=== PATIENT | female | born 1940 | race Caucasian/White ===

== ENCOUNTER 2017-10-08 18:20 | Inpatient (IN) | payer OTHER, BC ==
[~2017-10-08] VITALS: Ht 167.6 cm; Wt 72.6 kg
[2017-10-08 18:30] VITALS: BP 125/80
[2017-10-08] MEDS ORDERED: LYRICA 50 MG50 MG PO (19:11)
[2017-10-08] MEDS ORDERED: CRESTOR20 MG PO (19:11)
[2017-10-08] MEDS ORDERED: VITAMIN B-12500 MCG PO (19:11)
[2017-10-08] MEDS ORDERED: VITAMIN D2000 UNIT PO (19:12)
[2017-10-08] MEDS ORDERED: CALCIUM 600 +1 EAC1 PO (19:12)
[2017-10-08] MEDS ORDERED: BACTRIM DS TAB1 EACH PO (19:12)
[2017-10-08] MEDS ORDERED: SYMBICORT80 MCG/4.1 INH (19:13)
[2017-10-08] MEDS ORDERED: COMBIVENT RESPIM4 GM INH (19:13)
[2017-10-08] MEDS ORDERED: GLUMETZA1000 M1 PO (19:14)
[2017-10-08 19:26] LABS: ABSOLUTE NEUTROPHILS 10.2 thou/uL (1.4-8.2); BASOPHILS 0.8 % (0.0-2.0); EOSINOPHILS 0.2 % (0.0-3.0); HEMATOCRIT 40.7 % (37.0-47.0); HEMOGLOBIN 13.6 gm/dL (12.0-15.0); LYMPHOCYTES 4.1 % (24.0-44.0); MCH 32.3 pg (26.0-34.0); MCHC 33.5 g/dL (28.0-37.0); MCV 96.1 fL (80.0-100.0); MONOCYTES 2.1 % (1.0-8.0); PLATELET COUNT 224 thou/uL (150-400); POLYS 92.8 % (36.0-66.0); RBC 4.23 mil/uL (4.20-5.00)
[2017-10-08 19:31] LABS: CREATININE 0.8 mg/dL (0.6-1.0); POTASSIUM 3.8 mmol/L (3.5-5.1)
[2017-10-08 19:37] LABS: ALBUMIN 3.5 g/dL (3.4-5.0); TOTAL BILIRUBIN 0.6 mg/dL (<0.1-1.0); TOTAL PROTEIN 6.2 g/dL (6.4-8.2)
[2017-10-08 21:11] LABS: URINE BILIRUBIN NEGATIVE (Negative); URINE BLOOD NEGATIVE (Negative); URINE CLARITY CLEAR; URINE COLOR YELLOW; URINE GLUCOSE-RANDOM* NEGATIVE (Negative); URINE KETONES TRACE (Negative); URINE LEUKOCYTES NEGATIVE (Negative); URINE NITRITE NEGATIVE (Negative); URINE PROTEIN (DIPSTICK) NEGATIVE (Negative); URINE UROBILINOGEN 0.2 E.U./dl (0.2-1.0)
[2017-10-08 21:47] VITALS: BP 119/58
[2017-10-09 14:21] VITALS: BP 105/52
[2017-10-09 22:03] VITALS: BP 125/66
[2017-10-10 04:33] VITALS: BP 113/57
[2017-10-10 09:22] VITALS: BP 113/58
[2017-10-10 16:32] VITALS: BP 121/60
[2017-10-10 16:55] VITALS: BP 121/60
[2017-10-10 19:32] VITALS: BP 136/79
[2017-10-11 03:15] VITALS: BP 130/71
[2017-10-11 08:00] VITALS: BP 152/85
[2017-10-11 11:27] VITALS: BP 121/60
[2017-10-11 12:26] VITALS: BP 121/60
== END 2017-10-11 12:15 | disposition home health service (06) | DRG 872 ==
LOC: ER 18:20 → 4S 20:04 → EROBS 20:04 → 4S 10-09 14:50
PROVIDERS: Physician Assistant
PROC: 05HC33Z Insertion of Infusion Device into Left Basilic Vein, Percutaneous Approach (ICD-10-PCS; principal; 2017-10-10)
DX: A41.9 Sepsis, unspecified organism (principal); L03.113 Cellulitis of right upper limb; I89.0 Lymphedema, not elsewhere classified; Z88.1 Allergy status to other antibiotic agents; Z88.8 Allergy status to other drugs, medicaments and biological substances; Z85.3 Personal history of malignant neoplasm of breast; Z90.10 Acquired absence of unspecified breast and nipple
CPT/HCPCS: 10100; 27001

== ENCOUNTER 2019-09-16 17:01 | Inpatient (IN) | payer OTHER, BC ==
[~2019-09-16] VITALS: Ht 152.4 cm; Wt 66.2 kg
[~2019-09-16 17:01] MED LIST: BACTRIM DS TAB1 EACH PO; CALCIUM 600 +1 EAC1 PO; COMBIVENT RESPIM4 GM INH; CRESTOR20 MG PO; GLUMETZA1000 M1 PO; LYRICA 50 MG50 MG PO; SYMBICORT80 MCG/4.1 INH; VITAMIN B-12500 MCG PO; VITAMIN D2000 UNIT PO
[2019-09-16 17:11] VITALS: BP 97/58
[2019-09-16] MEDS ORDERED: CRESTOR20 MG PO (18:39)
[2019-09-16] MEDS ORDERED: LEVO-T50 MCG PO (18:40)
[2019-09-16] MEDS ORDERED: NEURONTIN 300M300 M2 PO (18:40)
[2019-09-16 18:51] LABS: ABSOLUTE NEUTROPHILS 12.6 thou/uL (1.4-8.2); BASOPHILS 0.1 % (0.0-2.0); EOSINOPHILS 0.1 % (0.0-3.0); HEMATOCRIT 44.9 % (37.0-47.0); HEMOGLOBIN 14.9 gm/dL (12.0-15.0); MCH 32.5 pg (26.0-34.0); MCHC 33.1 g/dL (28.0-37.0); MCV 98.2 fL (80.0-100.0); MONOCYTES 2.2 % (1.0-8.0); PLATELET COUNT 173 thou/uL (150-400); POLYS 94.6 % (36.0-66.0); RBC 4.57 mil/uL (4.20-5.00); RDW 13.8 % (10.5-14.5); WBC 13.3 thou/uL (4.0-11.0)
[2019-09-16 19:08] LABS: ALBUMIN 3.7 g/dL (3.4-5.0); CREATININE 0.9 mg/dL (0.6-1.0); DIRECT BILIRUBIN 0.2 mg/dL (<0.1-0.2); POTASSIUM 3.7 mmol/L (3.5-5.1); TOTAL BILIRUBIN 0.8 mg/dL (<0.1-1.0); TOTAL PROTEIN 6.6 g/dL (6.4-8.2)
[2019-09-16 19:17] LABS: CALCIUM 9.4 mg/dL (8.5-10.1)
[2019-09-16 20:35] VITALS: BP 97/58
[2019-09-16 21:50] VITALS: BP 127/72
[2019-09-16 21:52] VITALS: BP 126/67
[2019-09-17 00:07] VITALS: BP 109/55
[2019-09-17 06:10] LABS: HEMATOCRIT 43.5 % (37.0-47.0); HEMOGLOBIN 14.1 gm/dL (12.0-15.0); MCH 32.3 pg (26.0-34.0); MCHC 32.4 g/dL (28.0-37.0); MCV 99.6 fL (80.0-100.0); RBC 4.36 mil/uL (4.20-5.00); RDW 13.9 % (10.5-14.5); WBC 17.1 thou/uL (4.0-11.0)
[2019-09-17 06:14] LABS: CALCIUM 8.7 mg/dL (8.5-10.1); CREATININE 0.7 mg/dL (0.6-1.0); POTASSIUM 3.7 mmol/L (3.5-5.1)
[2019-09-17 08:19] VITALS: BP 117/59
--- NOTE | 2019-09-17 10:54 | NUR ---
Received awake on bed. Due medications given as prescribed. A+Ox4. On room air. Vital signs stable. Able to go to the bathroom, up ad cheri. On regular diet, tolerating well; no nausea, no vomiting and no abdominal pain. With swelling and redness noted at R arm- advised pt to keep elevated; intact, not weeping. With NS at 80cc/hr, infusing well at L AC. With limb alert at R arm. Assisted in ADLs.
[2019-09-17 13:41] VITALS: BP 112/49
--- NOTE | 2019-09-17 14:23 | NUR ---
PT ADMITTED RELATED TO RIGHT UPPER ARM CELLULITIS. CM REVIEWED CHART AND SPOKE WITH CARE TEAM. CM MET WITH PT AT BEDSIDE THIS DAY. PT IS A&O X4. CM ROLE INTRODUCED. PT INDICATED SHE LIVES IN RAISED RANCH STYLE HOUSE WITH HER SPOUSE, DOG, AND CAT WITH A FULL FLIGHT OF STEPS IN THROUGH THE GARAGE. 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 PT INDICATED NO DME. PT INDICATED SHE HAD HH AND HOME INFUSION 2 YRS AGO BUT CAN'T RECALL PROVIDERS. PT INDICATED SHE PLANS TO RETURN HOME ONCE MEDICALLY STABLE. CM TO FOLLOW INDICATED WITH DC PLANNING.
--- NOTE | 2019-09-17 16:01 | NUR ---
IT APPEARES THAT ID ANTICIPATES THAT PT WILL BE ABLE TO DISCAHRGE ON ORAL ABX ONCE MEDICALLY STABLE. SHOULD ANY DISCHARGE NEEDS ARISE CM ABLE TO ASSIST.
[2019-09-17 20:47] VITALS: BP 116/88
--- NOTE | 2019-09-18 01:22 | NUR ---
ASSUMED CARE OF PT AT 1900HRS. PT IS AOX4 AND LETS NEEDS BE KNOWN. PT IS UP AD SHERRIE. ABX TREATMENT CONTINUED. RUE ELEVATION ENCOURAGED. PT DENIED PAIN OR NAUSEA. ABX TREATMENT CONTINUED. PT WAS ABLE TO GET COMFORTABLE AND SLEEP PART OF THE SHIFT. VSS AND NO S/S OF ACUTE DISTRES. WILL CONTINUE TO MONITOR.
[2019-09-18 07:49] VITALS: BP 118/70
[2019-09-18] MEDS ORDERED: LINEZOLID600 MG PO (10:32)
[2019-09-18 10:48] VITALS: BP 118/70
--- NOTE | 2019-09-18 11:45 | NUR ---
Received awake on bed. Due medications given as prescribed. A+Ox4. On room air. Vital signs stable. On regular diet- tolerating well; no nausea, no vomiting and no abdominal pain. With relatives at bedside, pt very keen to go home- informed pt that there are no orders yet and will inform her doctor. Up ad cheri, independent with her ADLs. With NS at 80cc/hr, infusing well at L AC, on IV antibiotics as well. With limb alert on R Arm; with redness and swelling noted due to cellulitis, redness went down compared to yesterday; pt aware and informed to keep arm elevated. Pt seen by Dr Muonz- discharge orders made. Discharge instruction, follow up schedule and prescription given and instructed.
== END 2019-09-18 12:40 | disposition home or self-care (01) | DRG 602 ==
LOC: ER 17:01 → 4W 21:45
PROVIDERS: Nurse Practitioner; ADMIT Family Medicine
DX: L03.113 Cellulitis of right upper limb (principal); G93.41 Metabolic encephalopathy; L03.313 Cellulitis of chest wall; R19.7 Diarrhea, unspecified; G62.9 Polyneuropathy, unspecified; E03.9 Hypothyroidism, unspecified; Z96.653 Presence of artificial knee joint, bilateral; I89.0 Lymphedema, not elsewhere classified; B95.5 Unspecified streptococcus as the cause of diseases classified elsewhere; L50.8 Other urticaria; L29.8 Other pruritus; D72.829 Elevated white blood cell count, unspecified; S61.011A Laceration without foreign body of right thumb without damage to nail, initial encounter; J84.10 Pulmonary fibrosis, unspecified; S61.212A Laceration without foreign body of right middle finger without damage to nail, initial encounter; X58.XXXA Exposure to other specified factors, initial encounter; Y93.89 Activity, other specified; Y92.89 Other specified places as the place of occurrence of the external cause; Z90.89 Acquired absence of other organs; Z90.710 Acquired absence of both cervix and uterus; Z90.11 Acquired absence of right breast and nipple; Z79.899 Other long term (current) drug therapy; Z88.1 Allergy status to other antibiotic agents; Z88.5 Allergy status to narcotic agent; Z88.8 Allergy status to other drugs, medicaments and biological substances; Y99.8 Other external cause status
CPT/HCPCS: 10040

== ENCOUNTER 2020-09-30 17:15 | Inpatient (IN) | payer OTHER, BC ==
[~2020-09-30] VITALS: Ht 167.6 cm; Wt 68.5 kg
[~2020-09-30 17:15] MED LIST changes: +LEVO-T50 MCG PO; +LINEZOLID600 MG PO; +NEURONTIN 300M300 M2 PO
[2020-09-30 17:20] VITALS: BP 135/97
[2020-09-30 19:03] LABS: ABSOLUTE NEUTROPHILS 11.6 thou/uL (1.4-8.2); BASOPHILS 0.4 % (0.0-2.0); EOSINOPHILS 0.1 % (0.0-3.0); HEMATOCRIT 45.8 % (37.0-47.0); LYMPHOCYTES 3.1 % (24.0-44.0); MCH 31.9 pg (26.0-34.0); MCHC 32.8 g/dL (28.0-37.0); MCV 97.4 fL (80.0-100.0); MONOCYTES 3.2 % (1.0-8.0); PLATELET COUNT 186 thou/uL (150-400); POLYS 93.2 % (36.0-66.0); RDW 13.8 % (10.5-14.5); WBC 12.4 thou/uL (4.0-11.0)
[2020-09-30 19:09] LABS: CALCIUM 9.8 mg/dL (8.5-10.1); CREATININE 0.8 mg/dL (0.6-1.0); POTASSIUM 3.9 mmol/L (3.5-5.1)
[2020-09-30 19:15] LABS: DIRECT BILIRUBIN 0.2 mg/dL (<0.1-0.2); TOTAL BILIRUBIN 0.9 mg/dL (0.2-1.0); TOTAL PROTEIN 6.9 g/dL (6.4-8.2)
[2020-09-30 20:04] LABS: URINE BILIRUBIN NEGATIVE (Negative); URINE BLOOD NEGATIVE (Negative); URINE CLARITY CLEAR; URINE COLOR YELLOW; URINE GLUCOSE-RANDOM* NEGATIVE (Negative); URINE KETONES NEGATIVE (Negative); URINE LEUKOCYTES-REFLEX NEGATIVE (Negative); URINE NITRITE-REFLEX NEGATIVE (Negative); URINE PROTEIN (DIPSTICK) NEGATIVE (Negative); URINE UROBILINOGEN 0.2 E.U./dl (0.2-1.0)
--- NOTE | 2020-09-30 20:36 | NUR ---
TALKED WITH PT PAT. PT REQUESTING PHONE. PAT STATED WILL BRING IN ABOUT AN HOUR.
[2020-10-01] VITALS (7 sets, daily range): BP systolic 107–143; BP diastolic 47–82
[2020-10-01] MEDS ORDERED: vit b complex PO (01:59)
[2020-10-01] MEDS ORDERED: VIT D PO (02:00)
[2020-10-01] MEDS ORDERED: TUMERIC PO (02:00)
[2020-10-01] MEDS ORDERED: BIOTIN PO (02:01)
[2020-10-01] MEDS ORDERED: COMBIVENT RESPIM4 GM (02:02)
--- NOTE | 2020-10-01 15:40 | NUR ---
Assumed care of pt at 0700. Pt a&ox4. Ambulates with steady gait. IVF infusing. Pt states last night she received linezolid IV and broke out in hives. Morning dose of linezolid held. Provider notified. ID consulted. Medication restarted. Will continue to watch patient and monitor for any adverse reactions. Call light within reach. Pt calls appropriately.
--- NOTE | 2020-10-01 22:03 | HC ---
[facility] [place] [address] CONSULTATION Name: NATHAN CHAMPAGNE Room #: 211-P ADM IN M.R.#: [id number] Admission: 09/30/20 Attend Phys: Nian Wilson MD Discharge: Date of : 44 Report #: [id number] THIS REPORT FOR: cc: Eliseo Segovia MD, Neal A. MD Geha,Misael Soto MD ~ DATE OF SERVICE: 10/01/2020 INFECTIOUS DISEASE CONSULTATION REASON FOR CONSULTATION: I was asked to evaluate concerning right upper extremity cellulitis and lymphangitis. HISTORY OF PRESENT ILLNESS: The patient is a 80-year-old status post right mastectomy for breast cancer with chronic lymphedema involving her right upper extremity. She has had recurring episodes of cellulitis and lymphangitis. These episodes have been severe, requiring hospitalization. This happens once or twice a year. She was seen last year about this time with a similar presentation. She felt well yesterday morning and then had acute onset in the afternoon of fever, chills and right upper extremity pain, which extended to her chest. No nausea, vomiting or diarrhea. No change in mental status. No shortness of breath, chest pain, cough or sputum production. No palpitations. A 14-point review of system was negative other than what has been described above. She has had no injury to her right arm recently. She does have dry skin and has had issues with hangnails. ALLERGIES: ELIQUIS, CEFTRIAXONE, CLINDAMYCIN, ZOSYN, VANCOMYCIN, OXYCODONE. MEDICATIONS: As noted on her MAR, which were reviewed, now including Zyvox. PAST MEDICAL HISTORY: Breast cancer, right mastectomy, chemotherapy, radiation therapy, peripheral neuropathy in hands and feet, chronic lymphedema right upper extremity, hypothyroidism, bilateral total knee arthroplasties, appendectomy, tonsillectomy, left wrist carpal tunnel repair, bunion removal, hysterectomy. FAMILY HISTORY: No report of tuberculosis. SOCIAL HISTORY: Nonsmoker, minimal alcohol intake. PHYSICAL EXAMINATION: VITAL SIGNS: Temperature up to 39.4 degrees, hemodynamically stable. GENERAL: She was alert and cooperative, sitting up in bed. SKIN: She had cellulitis involving the right arm and right chest. Area was edematous 2+ in the right upper extremity with tenderness throughout. Previous [address] [address] CONSULTATION Name: NATHAN CHAMPAGNE Room #: 211-P [facility] IN M.R.#: [id number] Admission: 09/30/20 Attend Phys: Nina Wilson MD Discharge: Date of : 44 Report #: [id number] axillary dissection and mastectomy on the right. NECK: Supple, no thyromegaly or mass. HEENT: Eyes without scleral icterus. Mouth without mucositis. She was of normal weight. LUNGS: Clear. HEART: Regular. ABDOMEN: Soft and nontender. EXTREMITIES: Other extremities were within normal limits with no cyanosis or edema. NEUROLOGIC: Cranial nerves intact. Decreased sensation in her fingertips and toes. Strength in the upper and lower extremities within normal limits. Mood without anxiety or depression. LABORATORY STUDIES: Reviewed, noting hemoglobin of 15, white count of 12.4, creatinine 0.8. Liver function tests normal. Micro reviewed with blood cultures negative to date. Chest x-ray reviewed, which was clear. IMPRESSION: A 80-year-old with right upper extremity cellulitis, lymphangitis in the setting of chronic lymphedema, right upper extremity following mastectomy and lymph node dissection. She has multiple drug allergies, peripheral neuropathy, hypothyroidism. RECOMMENDATIONS: We will continue with Zyvox due to her multiple drug allergies. She did notice some pruritus during her infusion, which will be treated with antihistamines. We will control her upper extremity edema. Use emollients for her skin to help control recurrent infections. <ELECTRONICALLY SIGNED> By: Misael Zapata MD 10/01/20 [id number] Misael Zapata MD /nt
--- NOTE | 2020-10-02 03:47 | NUR ---
Assumed pt care at 1900. Pt is alert and oriented. No sign of distress noted in pt. Pt is laying in bed, resting comfortably. Denies any pain. Right arm cellulitis noted. Fall precaution in place. Vital signs stable. Assessment completed and documented. Scheduled meds administered to pt. No acute events overnight. Continue to monitor. No further needs at this time.
[2020-10-02 03:48] LABS: CREATININE 0.7 mg/dL (0.6-1.0); POTASSIUM 3.5 mmol/L (3.5-5.1)
[2020-10-02 03:52] LABS: HEMATOCRIT 40.6 % (37.0-47.0); HEMOGLOBIN 13.2 gm/dL (12.0-15.0); MCH 32.3 pg (26.0-34.0); MCHC 32.6 g/dL (28.0-37.0); MCV 98.9 fL (80.0-100.0); RBC 4.11 mil/uL (4.20-5.00); RDW 14.7 % (10.5-14.5); WBC 10.1 thou/uL (4.0-11.0)
[2020-10-02 04:38] VITALS: BP 121/67
[2020-10-02] MEDS ORDERED: NEURONTIN 300M300 M2 PO (06:58)
[2020-10-02] MEDS ORDERED: CALCIUM 600 +1 EAC1 PO (06:58)
[2020-10-02] MEDS ORDERED: LINEZOLID600 MG PO (06:58)
[2020-10-02] MEDS ORDERED: VITAMIN B-12500 MCG PO (06:59)
[2020-10-02 07:30] VITALS: BP 137/68
[2020-10-02 11:51] VITALS: BP 137/68
--- NOTE | 2020-10-02 13:59 | NUR ---
ASSESSMENT CHARTED. PT ALERT AND ORIENTED. VSS. DENIED HAVING PAIN OR DISCOMFORT. IV ABX GIVEN. SEEN BY DR. MCFADDEN, AND DR. KIM. ORDERS GIVEN TO DISCHARGE PT TO HOME. DISCHARGE INSTRUCTIONS GIVEN TO PT. PT VERBERLISED UNDERSTANDING.
== END 2020-10-02 14:05 | disposition home or self-care (01) | DRG 871 ==
LOC: ER 17:15 → EROBS 21:29 → 2N 21:29
PROVIDERS: Emergency Medicine; Nurse Practitioner Family; ADMIT Internal Medicine; ATTEND Internal Medicine
DX: A41.9 Sepsis, unspecified organism (principal); J96.01 Acute respiratory failure with hypoxia; L03.113 Cellulitis of right upper limb; E03.9 Hypothyroidism, unspecified; G62.9 Polyneuropathy, unspecified; E78.5 Hyperlipidemia, unspecified; Z96.653 Presence of artificial knee joint, bilateral; Z20.828 Contact with and (suspected) exposure to other viral communicable diseases; Z85.3 Personal history of malignant neoplasm of breast; Z90.11 Acquired absence of right breast and nipple; Z92.21 Personal history of antineoplastic chemotherapy; Z90.49 Acquired absence of other specified parts of digestive tract; Z90.710 Acquired absence of both cervix and uterus; Z79.899 Other long term (current) drug therapy; Z88.1 Allergy status to other antibiotic agents; Z88.5 Allergy status to narcotic agent; Z88.8 Allergy status to other drugs, medicaments and biological substances
CPT/HCPCS: 10081

== ENCOUNTER 2021-10-11 10:46 | Emergency (ER) | payer OTHER, BC ==
[~2021-10-11 10:46] MED LIST changes: +BIOTIN PO; +COMBIVENT RESPIM4 GM; +TUMERIC PO; +VIT D PO; +vit b complex PO
[2021-10-11 11:09] VITALS: BP 148/74
[2021-10-11 12:03] LABS: HEMATOCRIT 46.1 % (37.0-47.0); HEMOGLOBIN 15.2 gm/dL (12.0-15.0); MCH 32.1 pg (26.0-34.0); MCHC 32.9 g/dL (28.0-37.0); MCV 97.5 fL (80.0-100.0); RBC 4.73 mil/uL (4.20-5.00); RDW 14.1 % (10.5-14.5); WBC 7.4 thou/uL (4.0-11.0)
[2021-10-11 12:11] LABS: CALCIUM 9.8 mg/dL (8.5-10.1); CREATININE 0.6 mg/dL (0.6-1.0); POTASSIUM 3.9 mmol/L (3.5-5.1)
[2021-10-11 12:17] LABS: ALBUMIN 3.8 g/dL (3.4-5.0); TOTAL PROTEIN 6.5 g/dL (6.4-8.2)
[2021-10-11 12:50] LABS: URINE BILIRUBIN NEGATIVE (Negative); URINE BLOOD NEGATIVE (Negative); URINE CLARITY CLEAR; URINE COLOR YELLOW; URINE GLUCOSE-RANDOM* NEGATIVE (Negative); URINE KETONES TRACE (Negative); URINE LEUKOCYTES-REFLEX TRACE (Negative); URINE NITRITE-REFLEX NEGATIVE (Negative); URINE PROTEIN (DIPSTICK) NEGATIVE (Negative); URINE SPECIFIC GRAVITY 1.025 (1.005-1.035)
[2021-10-11 13:06] LABS: BACTERIA-REFLEX 1-9 Few /HPF (None Seen); MUCUS 0-3 Light strn/LPF (None Seen); SQUAMOUS 0-3 Few /LPF (0-3); URINE RBC None Seen /HPF (NONE SEEN); URINE WBC-REFLEX 0-5 Rare /HPF (0-5)
[2021-10-11 13:07] LABS: COARSE GRANULAR CASTS 0-3 Few /LPF (None Seen); CRYSTALS None Seen /LPF (None Seen)
== END 2021-10-11 12:04 | disposition home or self-care (01) ==
LOC: ER 10:46
PROVIDERS: Nurse Practitioner Family
DX: R19.7 Diarrhea, unspecified (principal); Z20.822 Contact with and (suspected) exposure to COVID-19; R23.1 Pallor; E03.9 Hypothyroidism, unspecified; Z90.89 Acquired absence of other organs; Z90.49 Acquired absence of other specified parts of digestive tract; Z90.710 Acquired absence of both cervix and uterus; Z98.890 Other specified postprocedural states; Z85.3 Personal history of malignant neoplasm of breast; Z90.11 Acquired absence of right breast and nipple; Z79.51 Long term (current) use of inhaled steroids; Z79.899 Other long term (current) drug therapy; Z88.1 Allergy status to other antibiotic agents; Z88.6 Allergy status to analgesic agent; Z88.8 Allergy status to other drugs, medicaments and biological substances; Z88.5 Allergy status to narcotic agent